=== PATIENT | male | born 1955 | race Caucasian/White ===

== ENCOUNTER 2017-04-04 19:24 | Emergency (ER) | payer BC ==
[2017-04-04 19:32] VITALS: BP 148/70
[2017-04-04] MEDS ORDERED: Alum Hydrox/Mag Hydrox/Simeth 30 ML, Lidocaine 2% 15 ML PO ONE ×2 (20:31)
[2017-04-04] MEDS ORDERED: Sodium Chloride 0.9% 10 ML Syringe FLUSH PRN (20:31)
[2017-04-04] MEDS ORDERED: Aspirin 81 MG Tab.Chew PO ONE (20:31)
--- NOTE | 2017-04-04 20:34 | EDM.PDOC ---
ED HPI GENERAL MEDICAL PROBLEM - General Chief Complaint: Chest Pain Stated Complaint: CHEST PAIN Time Seen by Provider: 04/04/17 20:30 Source of Information: Reports: Patient History Limitations: Reports: No Limitations - History of Present Illness INITIAL COMMENTS - FREE TEXT/NARRATIVE: Patient is a 62-year-old male who presents to the E.D. complaining of bilateral chest discomfort with intermittent radiation into the right arm. states it started approximately 2 weeks ago. Patient states with the nice weather patient has been outside working the yard later in the evening causing hime to have supper later at night. States he initially thought this was related to acid reflux since much of the symptoms were with onset of eating or drinking. He does note some mild onset of symptoms with exertion but states resolution is indeterminate with rest. States last night he had a alf alliance party and drank 6 beers and ate pizza late last night. Awoke at 3:00 this morning with increased pain to his chest and sensation of acid reflux. Patient slept the rest of the night upright in a recliner. This morning states he did not have any pain but felt nauseated and mildly diaphoretic. He did not vomit. This discomfort has been intermittent throughout the day with no relation with exertion. He did take 2 TUMS prior to coming to the ED with resolution of discomfort. Currently he denies any chest pain, shortness of breath, dizziness, nausea/ vomiting, abdominal pain, or back pain. He has had EGD and colonoscopy some years ago with no abnormal findings. Past medical history:diabetes type 2 Medications: metformin and baby aspirin Surgical Hx: not stated No first-degree relative with coronary disease Patient smokes three quarters of a pack every day. Alcohol use occasionally. Onset: Today Duration: Intermittent, Waxing/Waning Location: Reports: Chest Quality: Reports: Ache, Other (acid reflux, burrning) Severity: Mild Improves with: Reports: Medication Worsens with: Reports: Eating, Other (exertion) Context: Denies: Other Associated Symptoms: Reports: Diaphoresis, Nausea/Vomiting. Denies: Chest Pain , Cough, Fever/Chills, Loss of Appetite, Shortness of Breath, Weakness Treatments PROFESSOR OF KINESIOLOGY: Reports: Other (see below) (See HPI) Bilateral Chest Pain Score (Numeric/FACES): 5 - Related Data Allergies Allergy/AdvReac Type Severity Reaction Status Date / Time No Known Allergies Allergy Verified 04/04/17 19:32 Home Meds: Home Meds Aspirin 1 tab PO DAILY 04/04/17 [History] metFORMIN [Glucophage XR] 1 tab PO DAILY 04/04/17 [History] Past Medical History Gastrointestinal History: Reports: GERD Endocrine/Metabolic History: Reports: Diabetes, Type II Social & Family History - Tobacco Use Smoking Status *Q: Current Every Day Smoker Years of Tobacco use: 40 Packs/Tins Daily: 0.7 - Caffeine Use Caffeine Use: Reports: None - Recreational Drug Use Recreational Drug Use: No ED ROS GENERAL - Review of Systems Review Of Systems: ROS reveals no pertinent complaints other than HPI. ED EXAM, GENERAL - Physical Exam Exam: See Below Exam Limited By: No Limitations General Appearance: Alert, WD/WN, No Apparent Distress Eye Exam: Bilateral Eye: PERRL Ears: Hearing Grossly Normal Nose: Normal Inspection Throat/Mouth: Normal Inspection, Normal Oropharynx, Normal Voice, No Airway Compromise Neck: Normal Inspection, Supple Respiratory/Chest: No Respiratory Distress, Lungs Clear, Normal Breath Sounds, No Accessory Muscle Use, Chest Non-Tender Cardiovascular: Normal Peripheral Pulses, Regular Rate, Rhythm, No Murmur Peripheral Pulses: 2+: Radial (L) GI/Abdominal: Normal Bowel Sounds, Soft, Non-Tender, No Organomegaly, No Distention, No Mass Back Exam: Normal Inspection Extremities: Normal Inspection, Non-Tender, No Pedal Edema, Normal Capillary Refill Neurological: Alert, Oriented, CN II-XII Intact, Normal Cognition, No Motor/ Sensory Deficits Psychiatric: Normal Affect, Normal Mood Skin Exam: Warm, Dry, Intact, Normal Color Course - Vital Signs Last Recorded V/S: Last Vital Signs Temp 98.7 F 04/04/17 19:29 Pulse 79 04/04/17 19:29 Resp 18 04/04/17 19:29 BP 148/70 H 04/04/17 19:29 Pulse Ox 99 04/04/17 19:29 - Orders/Labs/Meds Orders: Active Orders 24 hr Category Date Time Status EKG 12 Lead [EKG Documentation Completion] [RC] STAT Care 04/04/17 19:42 Active Peripheral IV Care [RC] . DIRECTED Care 04/04/17 20:31 Active Chest 2V [CR] Stat Exams 04/04/17 20:31 Taken Peripheral IV Insertion Adult [OM.PC] Stat Oth 04/04/17 20:31 Ordered Labs: Laboratory Tests 04/04/17 04/04/17 04/04/17 Range/Units 20:50 20:50 20:50 WBC 7.80 (4.23-9.07) K/mm3 RBC 4.49 L (4.63-6.08) M/mm3 Hgb 13.7 (13.7-17.5) gm/L Hct 39.7 L (40.1-51.0) % MCV 88.4 (79.0-92.2) fl MCH 30.5 (25.7-32.2) pg MCHC 34.5 (32.2-35.5) g/dl RDW Std Deviation 41.9 (35.1-43.9) fL Plt Count 181 (163-337) K/mm3 MPV 9.2 L (9.4-12.3) fl Neut % (Auto) 70.3 H (34.0-67.9) % Lymph % (Auto) 22.2 (21.8-53.1) % [place] % (Auto) 6.8 (5.3-12.2) % Eos % (Auto) 0.5 L (0.8-7.0) Baso % (Auto) 0.1 (0.1-1.2) % Neut # (Auto) 5.48 H (1.78-5.38) K/mm3 Lymph # (Auto) 1.73 (1.32-3.57) K/mm3 [place] # (Auto) 0.53 (0.30-0.82) K/mm3 Eos # (Auto) 0.04 (0.04-0.54) K/mm3 Baso # (Auto) 0.01 (0.01-0.08) K/mm3 PT (8.0-13.0) SECONDS INR APTT (22-36) SECONDS Sodium 144 (136-145) mEq/L Potassium 4.1 (3.5-5.1) mEq/L Chloride 108 H (98-107) mEq/L Carbon Dioxide 25 (21-32) mEq/L Anion Gap 15.1 H (5-15) BUN 25 H (7-18) mg/dL Creatinine 1.2 (0.7-1.3) mg/dL Est Cr Clr Drug Dosing 67.59 mL/min Estimated GFR (MDRD) > 60 (>60) mL/min BUN/Creatinine Ratio 20.8 H (14-18) Glucose 177 H (74-106) mg/dL Calcium 9.0 (8.5-10.1) mg/dL Total Bilirubin 0.2 (0.2-1.0) mg/dL AST 31 (15-37) U/L ALT 19 (16-63) U/L Alkaline Phosphatase 64 (46-116) U/L CK-MB (CK-2) 25.1 H (0-3.6) ng/ml Troponin I 1.431 H* (0.00-0.056) ng/mL Total Protein 6.6 (6.4-8.2) g/dl Albumin 3.6 (3.4-5.0) g/dl Globulin 3.0 gm/dL Albumin/Globulin Ratio 1.2 (1-2) Lipase 123 (73-393) U/L 04/04/17 Range/Units 20:50 WBC (4.23-9.07) K/mm3 RBC (4.63-6.08) M/mm3 Hgb (13.7-17.5) gm/L Hct (40.1-51.0) % MCV (79.0-92.2) fl MCH (25.7-32.2) pg MCHC (32.2-35.5) g/dl RDW Std Deviation (35.1-43.9) fL Plt Count (163-337) K/mm3 MPV (9.4-12.3) fl Neut % (Auto) (34.0-67.9) % Lymph % (Auto) (21.8-53.1) % [place] % (Auto) (5.3-12.2) % Eos % (Auto) (0.8-7.0) Baso % (Auto) (0.1-1.2) % Neut # (Auto) (1.78-5.38) K/mm3 Lymph # (Auto) (1.32-3.57) K/mm3 [place] # (Auto) (0.30-0.82) K/mm3 Eos # (Auto) (0.04-0.54) K/mm3 Baso # (Auto) (0.01-0.08) K/mm3 PT 10.5 (8.0-13.0) SECONDS INR 0.97 APTT 25 (22-36) SECONDS Sodium (136-145) mEq/L Potassium (3.5-5.1) mEq/L Chloride (98-107) mEq/L Carbon Dioxide (21-32) mEq/L Anion Gap (5-15) BUN (7-18) mg/dL Creatinine (0.7-1.3) mg/dL Est Cr Clr Drug Dosing mL/min Estimated GFR (MDRD) (>60) mL/min BUN/Creatinine Ratio (14-18) Glucose (74-106) mg/dL Calcium (8.5-10.1) mg/dL Total Bilirubin (0.2-1.0) mg/dL AST (15-37) U/L ALT (16-63) U/L Alkaline Phosphatase (46-116) U/L CK-MB (CK-2) (0-3.6) ng/ml Troponin I (0.00-0.056) ng/mL Total Protein (6.4-8.2) g/dl Albumin (3.4-5.0) g/dl Globulin gm/dL Albumin/Globulin Ratio (1-2) Lipase (73-393) U/L Meds: Medications Discontinued Medications Generic Name Dose Route Start Last Admin Trade Name Freq PRN Reason Stop Dose Admin Aspirin 324 mg 04/04/17 20:31 04/04/17 20:43 Aspirin PO 04/04/17 20:32 324 mg ONETIME ONE Administration Al Hydroxide/Mg Hydroxide 30 0 ml 04/04/17 20:31 04/04/17 20:44 ml/ Lidocaine HCl 15 ml PO 04/04/17 20:32 45 ml ONETIME ONE Administration Sodium Chloride 1,000 mls @ 125 mls/hr 04/04/17 20:45 04/04/17 21:02 Normal Saline IV 125 mls/hr ASDIRECTED AUGUSTINE Administration Heparin Sodium/Dextrose 25,000 units in 500 mls @ 20.14 mls/hr 04/04/17 22:00 04/04/17 22:25 Heparin 25,000 Units In D5w 500 Ml IV 20.14 mls/hr TITRATE AUGUSTINE Administration Protocol 12 UNITS/KG/HR Sodium Chloride 10 ml 04/04/17 20:31 04/04/17 21:02 Saline Flush FLUSH 10 ml ASDIRECTED PRN Administration Keep Vein Open - Re-Assessments/Exams Free Text/Narrative Re-Assessment/Exam: 04/04/17 20:33 Ordered IV with normal saline 125 mL per hour, aspirin 324 mg p.o., GI cocktail, CBC, chem 14, CRP, chest x-ray, and EKG. EKG revealed normal sinus rhythm with questionable old infarct with Q waves in the inferior leads. No acute ST changes noted. No ischemic pattern noted. No additional EKGs to compare too. Chest x-ray reviewed:no acute abnormalities noted. Final interpretation pending. Dr. Miles reviewed as well. 04/04/17 21:33 Troponin results: 1.431. Ordered CKMB, PT/INR, and PTT. White blood cell count 7.80, hemoglobin 13.7, sodium 144, potassium 4.1, lipase 123, no other concerning findings noted. 2145 Nursing staff is determining which hospital patient would like to be transported to in [place]. 04/04/17 22:00 Patient has opted to be transported to [facility]. Ordered Heparin bolus and gtt. Contacted [facility] hospitalists Dr. Nelson and he has accepted the patient. Ambulance has been notified. Patient remains pain free. CKMB 25.1 suggesting recent OR within the past 6 days. Departure - Departure Time of Disposition: 22:17 Disposition: DC/Tfer to [facility] 02 Reason for Transfer *Q: Other Condition: good Clinical Impression: NSTEMI (non-ST elevated myocardial infarction) Referrals: Donal Carlos Jr, MD [Primary Care Provider] - Forms: ED Department Discharge - My Orders Last 24 Hours: My Active Orders 04/04/17 19:42 EKG 12 Lead [EKG Documentation Completion] [RC] STAT 04/04/17 20:31 Peripheral IV Care [RC] . DIRECTED Chest 2V [CR] Stat Peripheral IV Insertion Adult [OM.PC] Stat - Assessment/Plan Last 24 Hours: My Active Orders 04/04/17 19:42 EKG 12 Lead [EKG Documentation Completion] [RC] STAT 04/04/17 20:31 Peripheral IV Care [RC] . DIRECTED Chest 2V [CR] Stat Peripheral IV Insertion Adult [OM.PC] Stat
[2017-04-04] MEDS ORDERED: Sodium Chloride 0.9% 1,000 ML IV SCH (20:45)
[2017-04-04] MEDS ORDERED: Heparin Sodium/D5W 25,000 UNITS/500 ML BAG IV SCH (22:00)
--- NOTE | 2017-04-05 12:56 | CR ---
Chest: Two views of the chest were obtained. Comparison: No previous chest x-ray. Heart size and mediastinum are within normal limits. Lungs are clear with no acute infiltrates. Degenerative spurring is noted within the spine. Minimal nodularity is noted within the right mid chest believed to represent minimal granulomas. Impression: 1. Incidental findings. Nothing acute is identified on two-view chest x-ray. Diagnostic code #2
== END 2017-04-04 22:34 ==
LOC: JD.ED 19:24
DX: I21.4 Non-ST elevation (NSTEMI) myocardial infarction (principal); K21.9 Gastro-esophageal reflux disease without esophagitis; E11.9 Type 2 diabetes mellitus without complications; F17.210 Nicotine dependence, cigarettes, uncomplicated; Z79.84 Long term (current) use of oral hypoglycemic drugs; Z79.82 Long term (current) use of aspirin
CPT/HCPCS: 36415; 71020; 80053; 82553; 83690; 84484; 85025; 85610; 85730; 93005; 96361; 96374; 99285; A9270; J1644; J7040; J7050

== ENCOUNTER 2021-12-26 11:14 | Day surgery (SDC) | payer OTHER ==
[~2021-12-26 11:14] MED LIST: Dexamethasone 4 MG/ML 5 ML MDV ONE; Dexmedetomidine 200 MCG/2 ML SDV ONE; EPINEPHrine 1 MG/ML 30 ML MDV IRR SCH; Lactated Ringers 1,000 ML IV SCH; Lidocaine 1% 4 ML ONE; Lidocaine 1%/Sod Bicarbonate in NS 8.4% 1 ML Syringe IDERM PRN; Midazolam 1 MG/ML 2 ML SDV ONE; Propofol 200 MG/20 ML SDV ONE; Ropivacaine 0.5% 5 MG/ML 30 ML SDV ONE; Sodium Chloride 0.9% 10 ML Syringe FLUSH PRN; Sodium Chloride 0.9% 10 ML Syringe FLUSH SCH; fentaNYL 100 MCG/2 ML SDV ONE
[2021-12-26] MEDS ORDERED: ceFAZolin 1 GM Vial ONE (11:46)
[2021-12-26] MEDS ORDERED: Ondansetron 4 MG/2 ML SDV ONE (12:02)
[2021-12-26 15:50] VITALS: BP 128/78; PULSE 77
== END 2021-12-26 16:05 | disposition home or self-care (01) ==
LOC: JD.SDS 11:14
PROVIDERS: ATTEND Orthopaedic Surgery
DX: M75.102 Unspecified rotator cuff tear or rupture of left shoulder, not specified as traumatic (principal); M25.812 Other specified joint disorders, left shoulder; M75.22 Bicipital tendinitis, left shoulder; E11.9 Type 2 diabetes mellitus without complications; I10 Essential (primary) hypertension; E78.00 Pure hypercholesterolemia, unspecified; I25.10 Atherosclerotic heart disease of native coronary artery without angina pectoris; G89.29 Other chronic pain; I25.2 Old myocardial infarction; K21.9 Gastro-esophageal reflux disease without esophagitis; Z79.899 Other long term (current) drug therapy; Z98.890 Other specified postprocedural states; Z87.891 Personal history of nicotine dependence
CPT/HCPCS: 29826; 29827; 36415; 85610; C1713; J0171; J0690; J1100; J2250; J2405; J2704; J2795; J3010; J7120; 01630; 64415; 76942

== ENCOUNTER 2023-07-10 12:28 | Emergency (ER) | payer MEDICARE, BC ==
[2023-07-10 13:07] VITALS: BP 124/87; PULSE 68
== END 2023-07-10 13:05 | disposition home or self-care (01) ==
LOC: JD.ED 12:28
DX: S01.81XA Laceration without foreign body of other part of head, initial encounter (principal); I25.10 Atherosclerotic heart disease of native coronary artery without angina pectoris; I10 Essential (primary) hypertension; I25.2 Old myocardial infarction; E78.00 Pure hypercholesterolemia, unspecified; E11.9 Type 2 diabetes mellitus without complications; Z87.891 Personal history of nicotine dependence; Z79.899 Other long term (current) drug therapy; Z79.84 Long term (current) use of oral hypoglycemic drugs; Z86.16 Personal history of COVID-19; W22.8XXA Striking against or struck by other objects, initial encounter
CPT/HCPCS: 12011; 99282; 99283